=== PATIENT | male | born 1970 | race Caucasian/White ===

== ENCOUNTER 2018-04-12 10:49 | Day surgery (SDC) | payer OTHER ==
[2018-04-10 10:23] VITALS: BMI 20.9
[2018-04-12] MEDS ORDERED: MIDAZOLAM HCL 2 MG/2 ML SINGLE DOSE VIAL ONE (12:02)
[2018-04-12] MEDS ORDERED: ROPIVACAINE HCL 0.5% 30ML VIAL ONE (12:02)
[2018-04-12] MEDS ORDERED: LIDOCAINE 1% P/F 10 MG/ML VIAL ONE (12:02)
[2018-04-12] MEDS ORDERED: PROPOFOL 20 ML ONE ×5 (12:23→12:55)
[2018-04-12] MEDS ORDERED: ONDANSETRON 4 MG/2 ML VIAL IVPUSH PRN (14:20)
[2018-04-12] MEDS ORDERED: PROMETHAZINE HCL 25 MG/1 ML VIAL IVPUSH PRN (14:20)
[2018-04-12] MEDS ORDERED: oxyCODONE HCL 5 MG TABLET PO PRN ×2 (14:20)
[2018-04-12 15:28] VITALS: TEMP 97.5
[2018-04-12 15:59] VITALS: BP 110/70; PULSE 55
[2018-04-12] MEDS ORDERED: ACETAMINOPHEN 325 MG TABLET (FP) PO SCH (16:00)
--- NOTE | 2018-04-13 15:22 | OP ---
DATE OF OPERATION: 04/12/2018 PREOPERATIVE DIAGNOSIS: Left displaced olecranon fracture. POSTOPERATIVE DIAGNOSIS: Left displaced comminuted olecranon fracture. OPERATIVE PROCEDURE: Open reduction, internal fixation of left olecranon fracture. SURGEON: Abdias Woods MD SAIL CUTTER: LAURY Chaparro ANESTHESIA: Regional. COMPLICATIONS: None. ESTIMATED BLOOD LOSS: Minimal. INDICATION FOR PROCEDURE: The patient is a 48-year-old male with the above finding indicated for operative treatment. Risks, benefits, alternatives were discussed with patient at length. Preoperative informed consent was obtained. DESCRIPTION OF PROCEDURE: After preoperative identification of patient and correct operative site, patient was brought to the operating room and placed supine on the operating room table, all bony prominences were padded. Sedation and regional anesthesia were given. Intravenous antibiotics were given. Timeout procedure was performed. Left upper extremity was prepped and draped in the usual sterile fashion. Padded tourniquet was placed above the sterile prep. Esmarch bandage used to exsanguinate the left upper extremity. Tourniquet was inflated to 250 mmHg. A curvilinear incision was made over the olecranon process. Incidentally, the skin was in very good condition at this time, and there was minimal edema. The incision was taken sharply through the skin over the ulnar shaft. It was taken down to the level of the subcutaneous border of the olecranon. Proximally it was taken down to the level of the triceps fascia. Care was taken to protect the ulnar nerve. The fracture was identified and found to be more comminuted than the x-rays showed, with an intraarticular comminution present. These fragments were manipulated into satisfactory position and the fracture was reduced and held with an Acumed locking olecranon elbow plate. Once the fracture was reduced and the plate was placed, distal nonlocking and proximal locking and nonlocking screws were placed, with a home run screw placed as well. This provided secure stable fixation and an anatomically reduced fracture confirmed visually as well as radiographically in multiple planes. Full range of motion of the elbow and forearm including flexion, extension, and pronation, supination was achieved. Ulnar nerve was stable. No instability was present. Wound was irrigated and repaired in layers using 4-0 Vicryl and skin gene. Sterile dressings and elbow splint were placed. Patient was reversed from anesthesia and brought the recovery room in stable condition. He tolerated the procedure well. Remy Ordonez, the life science research assistant, was integral throughout the procedure. Procedure could not have been performed without a skilled operative life science research assistant. ABDIAS WOODS M.D. [facility]/[id number]
== END 2018-04-12 15:10 | disposition home or self-care (01) ==
LOC: FASU 10:49
PROVIDERS: ATTEND Orthopaedic Surgery Hand Surgery
PROC: 0PSL04Z Reposition Left Ulna with Internal Fixation Device, Open Approach (ICD-10-PCS; principal; 2018-04-12 12:00)
DX: S52.022A Displaced fracture of olecranon process without intraarticular extension of left ulna, initial encounter for closed fracture (principal); X58.XXXA Exposure to other specified factors, initial encounter; Y93.9 Activity, unspecified; Y92.9 Unspecified place or not applicable
CPT/HCPCS: 73070-TC-LT-FY; 94760

== ENCOUNTER 2019-01-24 08:01 | Day surgery (SDC) | payer OTHER ==
[2019-01-22 17:03] VITALS: BMI 21.2
[2019-01-24] MEDS ORDERED: MIDAZOLAM HCL 2 MG/2 ML SINGLE DOSE VIAL ONE (09:12)
[2019-01-24] MEDS ORDERED: PROPOFOL 20 ML ONE (09:12)
[2019-01-24] MEDS ORDERED: LIDOCAINE HCL/PF 2% SDV 5ML VIAL ONE (09:19)
[2019-01-24] MEDS ORDERED: ceFAZolin SODIUM 1 GM VIAL ONE (09:20)
[2019-01-24] MEDS ORDERED: DEXAMETHASONE SOD PHOSPHATE 4 MG/1 ML VIAL ONE (09:52)
[2019-01-24] MEDS ORDERED: KETOROLAC TROMETHAMINE 30 MG/1 ML VIAL ONE (09:52)
[2019-01-24] MEDS ORDERED: ONDANSETRON 4 MG/2 ML VIAL ONE (09:52)
[2019-01-24 10:51] VITALS: TEMP 97.4
[2019-01-24] MEDS ORDERED: ONDANSETRON 4 MG/2 ML VIAL IVPUSH PRN (11:10)
[2019-01-24] MEDS ORDERED: oxyCODONE HCL 5 MG TABLET PO PRN (11:10)
[2019-01-24] MEDS ORDERED: ACETAMINOPHEN 325 MG TABLET (FP) PO PRN (11:10)
[2019-01-24 11:28] VITALS: BP 122/70; PULSE 50
--- NOTE | 2019-01-26 12:04 | OP ---
DATE OF OPERATION: 01/24/2019 PREOPERATIVE DIAGNOSIS: Status post open reduction internal fixation left olecranon fracture. POSTOPERATIVE DIAGNOSIS: Status post open reduction internal fixation left olecranon fracture. OPERATIVE PROCEDURE: Removal of retained prosthesis, left elbow. SURGEON: Jesus Woods MD ANESTHESIA: General. COMPLICATIONS: None. ESTIMATED BLOOD LOSS: Minimal. INDICATION FOR PROCEDURE: The patient is a 48-year-old male with the above finding. He desired hardware removal due to soreness in the area. Risks, benefits, and alternatives were discussed with him at length, and proper informed consent was obtained. PROCEDURE: After proper identification of patient and correct operative site, patient was brought to the operating room and placed supine on the table. All bony prominences well padded. General anesthesia was provided. Left upper extremity was prepped and draped in the usual sterile fashion. Esmarch bandage was used to exsanguinate left upper extremity. Prior incision was re-opened and was in line with the prior incision. Sharp and blunt dissection was performed through the subcutaneous tissues. Plane was identified and freed of soft tissue. Deep screws were removed carefully so as not to strip any of the screws. Once this was accomplished, the plate was removed as well. Bony prominences were rongeured and filed down to a smooth edge. The wound was irrigated and repaired in layers using 4-0 Vicryl and skin gene. Sterile dressings were applied. Patient was reversed from anesthesia and brought to recovery room in stable condition. X-rays confirmed removal of all of the implant. He tolerated the procedure well. JESUS WOODS M.D. [facility]/[id number]
== END 2019-01-24 11:55 | disposition home or self-care (01) ==
LOC: FASU 08:01
PROVIDERS: ATTEND Orthopaedic Surgery Hand Surgery
PROC: 0RPM04Z Removal of Internal Fixation Device from Left Elbow Joint, Open Approach (ICD-10-PCS; principal; 2019-01-24 10:00)
DX: T84.84XA Pain due to internal orthopedic prosthetic devices, implants and grafts, initial encounter (principal); Y79.1 Therapeutic (nonsurgical) and rehabilitative orthopedic devices associated with adverse incidents; Y92.9 Unspecified place or not applicable
CPT/HCPCS: 73070-TC-LT-FY; 94760